=== PATIENT | female | born 1970 | race Caucasian/White ===

== ENCOUNTER 2020-08-08 09:58 | Outpatient (REF) | payer OTHER, SELFPAY | END 2020-08-08 09:59 | disposition home or self-care (01) | LOC: HO.EHI 09:58 | PROVIDERS: Visit Provider Internal Medicine | DX: Z13.89 Encounter for screening for other disorder (principal) | CPT/HCPCS: 36415; 84450; 84460; 86706; 86803; 87389; 99202 ==